=== PATIENT | male | born 1980 | race Caucasian/White ===

== ENCOUNTER 2017-05-11 06:56 | Emergency (ER) | END 2017-05-11 10:32 | disposition home or self-care (01) ==

== ENCOUNTER 2017-06-22 04:37 | Emergency (ER) | END 2017-06-22 08:51 | disposition home or self-care (01) ==

== ENCOUNTER 2018-06-06 18:03 | Emergency (ER) | payer MEDICAID ==
[~2018-06-06] VITALS: Ht 167.6 cm; Wt 75.7 kg
[~2018-06-06 18:03] MED LIST: HYDR-3980 PO; HYDR-4011 PO; IBUP-1542 PO; ONDA4TAB14 PO; ONDA4TAB8 PO; PANT40TA3 PO
[2018-06-06 18:13] VITALS: BP 141/72; PULSE 87; RESP 18; Ht 167.6 cm; Wt 75.7 kg
--- NOTE | 2018-06-06 20:34 | ERD ---
ER Documentation Chief Complaint Chief Complaint cough x 1 month , back pain x few days HPI 38-year-old male, previously healthy, presents to the emergency department, complaining of 4 weeks with cough, associated with lower back pain during the last 5 days. Otherwise, no shortness of breath, no fever or chills, no history of recent trauma. ROS All systems reviewed and are negative except as per history of present illness. Medications Home Meds Active Scripts Acetaminophen* (Tylenol*) 325 Mg Tablet, 2 TAB PO Q6 PRN for PAIN AND OR ELEVATED TEMP, #20 TAB Prov:LOLA LOZADA MD 06/06/18 Ranitidine Hcl* (Zantac*) 150 Mg Tablet, 150 MG PO BID PRN for EPIGASTRIC PAIN for 5 Days, #10 TAB Prov:LOLA LOZADA MD 06/06/18 Promethazine Hcl* (Promethazine Hcl* Syrup) 6.25 Mg/5 Ml Syrup, 6.25 MG PO QHS PRN for COUGH, #60 ML Prov:LOLA LOZADA MD 06/06/18 Azithromycin* (Zithromax*) 250 Mg Tablet, 250 MG PO .ZPACK DIRECTED, #6 TAB TAKE 500 MG (2 TABS) THE FIRST DAY THEN 250 MG (1 TAB) DAYS 2-5 Prov:LOLA LOZADA MD 06/06/18 Ondansetron (Ondansetron Odt) 4 Mg Tab.rapdis, 4 MG PO Q6H PRN for NAUSEA AND/OR VOMITING, #30 TAB Prov:MARCELINO LUI MD 06/22/17 Ibuprofen* (Motrin*) 600 Mg Tab, 600 MG PO Q6H PRN for PAIN AND OR ELEVATED TEMP, #30 TAB Prov:MARCELINO LUI MD 06/22/17 Hydrocodone/Acetaminophen ([place] 10-325 Tablet) 1 Each Tablet, 1 TAB PO Q6H PRN for PAIN, #7 TAB Prov:MARCELINO LUI MD 06/22/17 Hydrocodone/Acetaminophen ([place] 5-325 Tablet) 1 Each Tablet, 1 TAB PO Q6H PRN for PAIN, #7 TAB Prov:BRITTANIE OTERO 05/11/17 Ondansetron Hcl* (Zofran*) 4 Mg Tablet, 4 MG PO Q8H PRN for NAUSEA AND/OR VOMITING, #30 TAB Prov:BRITTANIE OTERO 05/11/17 Pantoprazole* (Protonix*) 40 Mg Tablet.dr, 40 MG PO DAILY, #20 TAB Prov:BRITTANIE OTERO F 05/11/17 Reported Medications [none] No Conflict Check 07/31/12 Allergies Allergies: Coded Allergies: No Known Allergy (Unverified , 07/31/12) PMhx/Soc History of Surgery: No Anesthesia Reaction: No Hx Neurological Disorder: No Hx Respiratory Disorders: No Hx Cardiac Disorders: No Hx Psychiatric Problems: No Hx Miscellaneous Medical Probl: Yes (pancreatitis) Hx Alcohol Use: Yes Hx Substance Use: No Hx Tobacco Use: Yes FmHx Family History: No diabetes, No coronary disease Physical Exam Vitals Vital Signs Date Temp Pulse Resp B/P (MAP) Pulse Ox O2 O2 Flow FiO2 Time Delivery Rate 06/06/18 99.6 87 18 141/72 97 18:13 (95) Physical Exam Const: No acute distress Head: Atraumatic Eyes: Normal Conjunctiva ENT: Normal External Ears, Nose and Mouth. Neck: Full range of motion. No meningismus. Resp: Rhonchi to auscultation bilaterally Cardio: Regular rate and rhythm, no murmurs Abd: Soft, non tender, non distended. Normal bowel sounds Skin: No petechiae or rashes Back: No midline or flank tenderness Ext: No cyanosis, or edema Neur: Awake and alert Psych: Normal Mood and Affect Procedures/MDM At the time of discharge, patient with nontoxic appearance, vital signs stable, no respiratory distress. Differential diagnosis include but not limited to: upper vs lower respiratory infection bacterial/viral/fungal. Asthma, COPD, pneumonitis, allergies, GERD. Less likely pulmonary embolism, cardiac related or malignancy, but still is a possibility. Physical examination and clinical presentation consistent most likely with viral infection with early superimposed bacterial infection. During the ED course the patient remained stable, no new complaints. Treatment options and clinical impression discussed with the patient who agrees with management. The patient is stable to be treated outpatient and will be discharged home. Some side effects of prescribed medications (headache, rash, nausea, vomiting, diarrhea, interactions with other medications) were reviewed. The patient needs to follow up with the primary care provider in the next 48h. If symptoms persist, worsen or new symptoms develop, then patient should return to the ED immediately. Disclaimer: Inadvertent spelling and grammatical errors are likely due to EHR/dictation software use and do not reflect on the overall quality of patient care. Also, please note that the electronic time recorded on this note does not necessarily reflect the actual time of the patient encounter. Departure Diagnosis: Primary Impression: Cough Condition: Stable Additional Instructions: Muchas karl por [facility] para jones servicio. Esperamos que en jones visita a la jaime de emergencia jones problema medico haya sido solucionado y que se sienta mucho mejor. Para estar seguros que jones mejoria sigue en proceso, le pedimos el favor de hacer xochitl deni de seguimiento medico con jones doctor primario en los proximos 2-4 frankel. Lleve con usted estos documentos y las medicinas recetadas. Si killian sintomas empeoran, NO SE ESPERE, por favor regrese a jaime de emergencia INMEDIATAMENTE. En taisha que usted no tenga un mdico de atencin primaria: Llame al mdico o clnica comunitaria de referencia que aparece abajo vernell las horas de consultorio para hacer xochitl deni para que le vean. CLINICAS: [facility] [phone] [facility] [phone] [facility] [phone] [facility] [phone] [place] [id number] [phone] [facility]. [phone] MD Jun 06, 2018 20:34
[2018-06-06] MEDS ORDERED: PROM6.2515 PO (21:44)
[2018-06-06] MEDS ORDERED: AZIT250T PO (21:44)
[2018-06-06] MEDS ORDERED: RANI150T35 PO (21:44)
[2018-06-06] MEDS ORDERED: ACET325T33 PO (21:44)
== END 2018-06-06 21:53 | disposition home or self-care (01) ==
LOC: FTE 18:03
DX: R05 Cough (principal); Z87.891 Personal history of nicotine dependence
CPT/HCPCS: 71046; Z7502

== ENCOUNTER 2018-11-02 16:13 | Emergency (ER) | payer MEDICAID ==
[~2018-11-02] VITALS: Ht 165.1 cm; Wt 73.7 kg
[~2018-11-02 16:13] MED LIST changes: +ACET-141 PO; +ACET325T33 PO; +AZIT250T PO; +METH750T93 PO; +PROM6.2515 PO; +RANI150T35 PO
[2018-11-02 16:17] VITALS: BP 149/84; PULSE 70; RESP 16; Ht 165.1 cm; Wt 73.7 kg
== END 2018-11-02 17:50 | disposition home or self-care (01) ==
LOC: E/R 16:13
DX: M54.6 Pain in thoracic spine (principal)
CPT/HCPCS: 71045; 80053; 85025; Z7502